=== PATIENT | female | born 1965 | race Caucasian/White ===

== ENCOUNTER 2018-12-21 13:52 | Emergency (ER) | payer OTHER ==
[2018-12-21 14:11] VITALS: BP 136/80
--- NOTE | 2018-12-21 14:31 | UC ---
Eye Complaint HPI - HPI Summary HPI Summary: day 2 of itchy red eyes bilaterally and has developed a clear fluid filled bleb on lateral left eye---no visual deficits, does not wear contact lens-- - History of Current Complaint Chief Complaint: UCEye Stated Complaint: EYE ISSUE Time Seen by Provider: 12/21/18 14:09 Hx Obtained From: Patient ?: No Onset/Duration: Sudden Onset, Lasting Days - 2, Still Present Timing: Constant Pain Intensity: 4 Pain Scale Used: 0-10 Numeric Location of Injury: Conjunctiva Character: Foreign Body Sensation Aggravating Factor(s): Nothing Alleviating Factor(s): Nothing Associated Signs And Symptoms: Positive: Negative - Allergies/Home Medications Allergies/Adverse Reactions: Allergies Allergy/AdvReac Type Severity Reaction Status Date / Time cephalexin [From Keflex] Allergy Rash Verified 12/21/18 14:06 PMH/Surg Hx/FS Hx/Imm Hx Previously Healthy: No Endocrine History: Dyslipidemia Cardiovascular History: Hypertension Psychological History: Anxiety - Surgical History Surgical History: Yes Surgery Procedure, Year, and Place: CHOLECYSTECTOMY, DERMOID CYSTS REMOVED FROM OVARIES, RIGHT HIP REPLACEMENT - Family History Known Family History: Positive: Hypertension - Social History Occupation: Employed Full-time Lives: With Family Alcohol Use: None Substance Use Type: None Smoking Status (MU): Never Smoked Tobacco Review of Systems All Other Systems Reviewed And Are Negative: Yes Constitutional: Positive: Fever Skin: Positive: Negative Eyes: Positive: Eye Redness - bilateral, Other - clear bleb left lateral eye ENT: Positive: Negative Respiratory: Positive: Negative Cardiovascular: Positive: Negative Gastrointestinal: Positive: Negative Genitourinary: Positive: Negative Motor: Positive: Negative Neurovascular: Positive: Negative Musculoskeletal: Positive: Negative Neurological: Positive: Negative, Headache Is Patient Immunocompromised?: No Physical Exam Triage Information Reviewed: Yes Appearance: Well-Appearing, No Pain Distress, Well-Nourished Vital Signs: Initial Vital Signs Temp 98.8 F 12/21/18 14:08 Pulse 71 12/21/18 14:08 Resp 17 12/21/18 14:08 BP 136/80 12/21/18 14:08 Pulse Ox 100 12/21/18 14:08 Vital Signs Reviewed: Yes Eye Exam: Other Eyes: Positive: Conjunctiva Inflamed, Other:. Negative: Discharge - clear fluid filled bleb left eye ENT Exam: Normal ENT: Positive: Normal ENT inspection, Hearing grossly normal, Hoarse voice. Negative: Trismus, Muffled voice Dental Exam: Normal Neck exam: Normal Neck: Positive: Supple, Nontender Respiratory Exam: Normal Respiratory: Positive: Chest non-tender, No respiratory distress, No accessory muscle use Cardiovascular Exam: Normal Cardiovascular: Positive: RRR, Pulses Normal, Brisk Capillary Refill Musculoskeletal Exam: Normal Musculoskeletal: Positive: Strength Intact, ROM Intact, No Edema Neurological Exam: Normal Neurological: Positive: Alert, Muscle Tone Normal Psychological Exam: Normal Eye Complaint Course/Dx - Course Course Of Treatment: cool compresses, zaditor drops follow with pcp prn - Differential Dx/Diagnosis Provider Diagnosis: Chemosis of left conjunctiva Discharge - Sign-Out/Discharge Documenting (check all that apply): Patient Departure All imaging exams completed and their final reports reviewed: No Studies - Discharge Plan Condition: Stable Disposition: HOME Prescriptions: Ketotifen Fumarate [Zaditor] 0.025 % OP BID #1 [id number] Patient Education Materials: Allergies (ED), Conjunctivitis (ED) Referrals: Gerson Calhoun [facility] [Primary Care Provider] - If Needed - Billing Disposition and Condition Condition: STABLE Disposition: Home
== END 2018-12-21 14:41 | disposition home or self-care (01) ==
LOC: UCEAST 13:52
DX: H11.423 Conjunctival edema, bilateral (principal); E78.5 Hyperlipidemia, unspecified; I10 Essential (primary) hypertension; F41.9 Anxiety disorder, unspecified
CPT/HCPCS: 99212; G0463